=== PATIENT | female | born 1995 | race African-American/Black ===

== ENCOUNTER 2017-02-02 13:43 | Emergency (ER) | payer MEDICAID ==
[~2017-02-02] VITALS: Ht 162.6 cm; Wt 62.0 kg
[2017-02-02 18:04] VITALS: BP 132/75
[2017-02-02 18:33] LABS: BASOPHILS % 0.2 % (0.0-2.0); EOSINOPHILS % 0.2 % (0.0-5.0); HEMATOCRIT. 39.5 % (36.0-48.0); HEMOGLOBIN. 13.1 g/dL (12.0-16.0); LYMPHOCYTES % 8.6 % (20.0-50.0); MEAN CORPUSCULAR HEMOGLOBIN 26.7 pg (28.0-32.0); MEAN CORPUSCULAR VOLUME 80.7 fL (81.0-99.0); MEAN PLATELET VOLUME 6.8 fl (7.4-10.4); MONOCYTES % 8.9 % (2.0-8.0); NEUTROPHILS % 82.1 % (40.0-76.0); PLATELET 315 x1000/uL (130-400); RED CELL DISTRIBUTION WIDTH 13.5 % (11.6-14.6); WHITE BLOOD COUNT 7.4 x1000/uL (4.5-11.0)
[2017-02-02 18:37] LABS: INR 1.1; PROTHROMBIN TIME 11.4 sec
[2017-02-02 18:41] LABS: HCG SCREEN NEGATIVE
[2017-02-02] MEDS ORDERED: ONDANSETRON HCL 4MG/2ML VIAL IV ONE (18:45)
[2017-02-02 18:47] LABS: ALANINE AMINOTRANSFERASE 10 IU/L (13-61); ALBUMIN 3.9 g/dL (3.4-5.0); ANION GAP 15; CALCIUM 8.6 mg/dL (8.5-10.1); CARBON DIOXIDE 22 mEq/L (21-32); CHLORIDE 102 mEq/L (98-107); INDEX HEMOLYSI 1 (1-3); INDEX ICTERIC 1 (1-4); INDEX LIPEMIC 1 (1-3); LIPASE 84 IU/L (73-393); TROPONIN I < 0.02 ng/mL (0.00-0.04); UREA NITROGEN BLOOD 10 mg/dL (7-21); eGFR > 60 mL/min (>60)
== END 2017-02-02 22:09 | disposition home or self-care (01) ==
LOC: ER 14:14
DX: N83.201 Unspecified ovarian cyst, right side (principal); R10.9 Unspecified abdominal pain; R11.2 Nausea with vomiting, unspecified
CPT/HCPCS: 36415; 71010; 74177; 80053; 83690; 84484; 84703; 85025; 85610; 93005; 96374; 99285; J2405; Z7610

== ENCOUNTER 2017-06-14 04:51 | Emergency (ER) | payer MEDICAID ==
[~2017-06-14] VITALS: Ht 152.4 cm; Wt 63.0 kg
[2017-06-14 07:11] LABS: BASOPHILS % 1.2 % (0.0-2.0); EOSINOPHILS % 1.5 % (0.0-5.0); HEMATOCRIT. 38.3 % (36.0-48.0); HEMOGLOBIN. 12.8 g/dL (12.0-16.0); LYMPHOCYTES % 35.1 % (20.0-50.0); MEAN CORPUSCULAR HEMOGLOBIN 26.8 pg (28.0-32.0); MEAN CORPUSCULAR VOLUME 79.9 fL (81.0-99.0); MEAN PLATELET VOLUME 6.5 fl (7.4-10.4); MONOCYTES % 8.2 % (2.0-8.0); PLATELET 331 x1000/uL (130-400); RED BLOOD CELL COUNT 4.79 mill/uL (4.2-5.4); RED CELL DISTRIBUTION WIDTH 14.2 % (11.6-14.6)
[2017-06-14 07:12] LABS: CHLORIDE 109 mEq/L (98-107); INR 1.1; PROTHROMBIN TIME 11.3 sec (9.4-11.6)
[2017-06-14 07:21] LABS: CARBON DIOXIDE 22 mEq/L (21-32)
[2017-06-14 07:33] LABS: CLARITY URINE CLEAR (CLEAR); COLOR URINE YELLOW (YELLOW); GLUCOSE URINE NEGATIVE (NEGATIVE); KETONES URINE 1+ (NEGATIVE); LEUKOCYTE ESTERASE URINE NEGATIVE (NEGATIVE); NITRITE URINE NEGATIVE (NEGATIVE); OCCULT BLOOD URINE TRACE (NEGATIVE); PROTEIN URINE NEGATIVE (NEGATIVE); SPECIFIC GRAVITY URINE 1.013 (1.005-1.030); UROBILINOGEN URINE 0.2 E.U./dL (0.2-1.0)
[2017-06-14 08:12] LABS: *AMPHETAMINES SCREEN URINE NEGATIVE (NEGATIVE); *BARBITURATES SCREEN URINE NEGATIVE (NEGATIVE); *BENZODIAZEPINES SCREEN URINE NEGATIVE (NEGATIVE); *COCAINE SCREEN URINE NEGATIVE (NEGATIVE); METHADONE URINE SCREEN NEGATIVE (NEGATIVE); OPIATES URINE SCREEN NEGATIVE (NEGATIVE); PHENCYCLIDINE URINE SCREEN NEGATIVE (NEGATIVE)
[2017-06-14 08:15] LABS: CANNABINOID URINE SCREEN PRESUMTIVE POSITIVE (NEGATIVE)
[2017-06-14] MEDS ORDERED: SODIUM CHLORIDE 0.9% 1,000 ML IV ONE (09:07)
[2017-06-14] MEDS ORDERED: KETOROLAC 30MG/ML VIAL IV STA (09:08)
[2017-06-14] MEDS ORDERED: CEFTRIAXONE 1 G PREMIX 50 ML IV ONE (11:45)
[2017-06-14] MEDS ORDERED: SODIUM CHLORIDE 0.9% 10ML VIAL ONE (11:49)
[2017-06-14] MEDS ORDERED: IOHEXOL-300 100 ML BOTTLE ONE (11:49)
[2017-06-14 13:38] VITALS: BP 101/67
== END 2017-06-14 13:40 | disposition home or self-care (01) ==
LOC: ER 04:51
DX: R10.2 Pelvic and perineal pain (principal); N83.8 Other noninflammatory disorders of ovary, fallopian tube and broad ligament; R03.0 Elevated blood-pressure reading, without diagnosis of hypertension
CPT/HCPCS: 36415; 74177; 76830; 76856; 80053; 80305; 81001; 81025; 83690; 85025; 85610; 96361; 96365; 96375; 99285; A4216; J0696; J1885; J7030; Q9967; Z7610